=== PATIENT | female | born 1940 | race Caucasian/White ===

== ENCOUNTER 2017-02-17 16:26 | Emergency (ER) | payer MEDICARE ==
[~2017-02-17] VITALS: Ht 167.6 cm; Wt 58.0 kg
[2017-02-17] MEDS ORDERED: PHENYLEPHRINE NASAL 1%, 15ML SPRAY ONE (17:46)
[2017-02-17] MEDS ORDERED: SILVER NITRATE STICK TP ONE ×2 (17:47→18:00)
[2017-02-17] MEDS ORDERED: PHENYLEPHRINE NASAL 1%, 30ML DROPS NAS ONE (18:00)
[2017-02-17 19:06] VITALS: BP 140/85
== END 2017-02-17 19:09 | disposition home or self-care (01) ==
LOC: ED 18:08
DX: R04.0 Epistaxis (principal); E11.9 Type 2 diabetes mellitus without complications
CPT/HCPCS: 99283

== ENCOUNTER 2018-05-20 11:26 | Emergency (ER) | payer MEDICARE ==
[~2018-05-20] VITALS: Ht 167.6 cm; Wt 57.6 kg
[2018-05-20 11:48] VITALS: BP 128/74
[2018-05-20] MEDS ORDERED: OXYMETAZOLINE NASAL SPRAY 0.05%, 15ML NAS ONE (12:00)
[2018-05-20] MEDS ORDERED: ESCI5TAB7 PO (12:05)
[2018-05-20] MEDS ORDERED: LACO50TA PO (12:05)
[2018-05-20] MEDS ORDERED: LEVO88TA4 PO (12:05)
[2018-05-20] MEDS ORDERED: ATOR10TA9 PO (12:05)
[2018-05-20] MEDS ORDERED: LEVE750T37 PO (12:05)
[2018-05-20] MEDS ORDERED: METF500T17 PO (12:05)
[2018-05-20] MEDS ORDERED: OXYMETAZOLINE NASAL SPRAY 0.05%, 15ML ONE (12:17)
[2018-05-20] MEDS ORDERED: SILVER NITRATE STICK TP ONE (12:40)
--- NOTE | 2018-05-20 12:54 | NUR ---
Patient/Caregiver given discharge instructions and they have confirmed that they understand the instructions. Patient ambulatory with steady gait.
== END 2018-05-20 13:30 | disposition home or self-care (01) ==
LOC: ED 13:29
DX: R04.0 Epistaxis (principal); E11.9 Type 2 diabetes mellitus without complications
CPT/HCPCS: 30901; 99284